=== PATIENT | female | born 1995 | race African-American/Black ===

== ENCOUNTER 2024-05-14 21:46 | Inpatient (IN) | payer SELFPAY ==
[~2024-05-14] VITALS: Ht 165.1 cm; Wt 68.9 kg
[2024-05-14] MEDS: ALBUTEROL (0.083%) 2.5MG/3ML NEB HHN STA (21:48)
[2024-05-14] MEDS: IPRATROPIUM BROMIDE (0.02%) 0.5MG/2.5ML NEB HHN STA (21:48)
[2024-05-14] MEDS: PROPOFOL 10MG/ML 100ML 100 ML IV ONE (22:00)
[2024-05-14] MEDS: METHYLPREDNISOLONE SOD SUCC 125MG/2ML (ACT-O-VIAL) IV STA (22:10)
[2024-05-14] MEDS: MAGNESIUM 2 G PREMIX 50 ML IV ONE (22:11)
[2024-05-14] MEDS: SODIUM CHLORIDE 0.9% 1,000 ML IV ONE (22:11)
[2024-05-14 22:16] VITALS: PULSE 86; RESP 22; O2SAT 100
[2024-05-14 22:18] LABS: CHLORIDE 107 mEq/L (98-107); POTASSIUM 4.6 mEq/L (3.5-5.1); SODIUM 137 mEq/L (136-145)
[2024-05-14 22:19] LABS: CALCIUM 8.4 mg/dL (8.7-10.4); CARBON DIOXIDE 16 mEq/L (21-32)
[2024-05-14 22:24] LABS: CREATININE 1.1 mg/dL (0.6-1.0); GLUCOSE 344 mg/dL (70-105); UREA NITROGEN BLOOD 11 mg/dL (9-23)
[2024-05-14 22:25] LABS: TROPONIN I HIGH SENSITIVITY 12 ng/L (3.0-34)
[2024-05-14 22:27] LABS: ETHANOL BLOOD < 10 mg/dL (<10)
[2024-05-14] MEDS ORDERED: MIDAZOLAM HCL 100 MG in DEXT 5% WATER 80 ML IV ONE (22:30)
[2024-05-14] MEDS: MIDAZOLAM 100MG/100ML PREMIX IV PRN (22:31)
[2024-05-14 22:35] LABS: LACTIC ACID 8.1 mmol/L (0.4-2.0)
[2024-05-14] MEDS: LORAZEPAM 2MG/ML INJ IV ONE (22:40)
[2024-05-14 22:45] LABS: HCG SCREEN NEGATIVE
[2024-05-14 22:55] LABS: BASOPHILS % 0.3 % (0.0-2.0); EOSINOPHILS % 1.1 % (0.0-5.0); HEMATOCRIT. 34.7 % (36.0-48.0); HEMOGLOBIN. 11.1 g/dL (12.0-16.0); LYMPHOCYTES % 14.1 % (20.0-50.0); MEAN CORPUSCULAR HEMOGLOBIN 29.7 pg (28.0-32.0); MEAN CORPUSCULAR HGB CONC 32.1 g/dL (31.0-37.0); MEAN CORPUSCULAR VOLUME 92.5 fL (81.0-99.0); MONOCYTES % 5.9 % (2.0-8.0); NEUTROPHILS % 78.6 % (40.0-76.0); PLATELET 403 x1000/uL (130-400); RED BLOOD CELL COUNT 3.75 mill/uL (4.2-5.4); RED CELL DISTRIBUTION WIDTH 14.8 % (11.6-14.6); WHITE BLOOD COUNT 18.6 x1000/uL (4.5-11.0)
[2024-05-15 00:13] LABS: D-DIMER 16.02 mg/L FEU (<0.50); PARTIAL THROMBOPLASTIN TIME 24.4 sec (23.4-31.0); PROTHROMBIN TIME 10.9 sec (9.6-11.0)
[2024-05-15 00:16] LABS: BG HCO3 ACT 17.7 mmol/L (21.0-28.0); BG PCO2 44.6 mmHg (32.0-45.0); BG PO2 384.5 mmHg (83.0-108.0)
[2024-05-15 00:17] LABS: BG BASE EXCESS -9.7 mmol/L (-2.0-3.0); BG FRACTION INSPIRED OXYGEN 100; BG PEEP (cmH2O) 5 cmH2O; BG SAMPLE SITE RIGHT RADIAL; BG TIDAL VOLUME(mL) 450 mL; BG VENT MODE AC; BG VENT RATE 18 set
[2024-05-15 00:19] LABS: BG CARBOXYHEMOGLOBIN 0.1 % (0.5-1.5); BG DEOXYHEMOGLOBIN 0.1 % (0.0-5.0); BG METHEMOGLOBIN 0.3 % (0.5-1.5); BG OXYGEN SATURATION 99.9 % (94.0-98.0); BG OXYHEMOGLOBIN 99.5 % (94.0-98.0); BG TOTAL HEMOGLOBIN 12.6 g/dL (12.0-16.0)
[2024-05-15] MEDS: DEXMEDETOMIDINE 400 MCG/100 ML 100 ML IV PRN (00:21)
[2024-05-15] MEDS: PIPERACILLIN/TAZO 3.375G/50ML 50 ML IV SCH (00:21)
[2024-05-15 00:23] LABS: CLARITY URINE CLOUDY (CLEAR); COLOR URINE YELLOW (YELLOW); GLUCOSE URINE 3+ (NEGATIVE); KETONES URINE NEGATIVE (NEGATIVE); LEUKOCYTE ESTERASE URINE NEGATIVE (NEGATIVE); NITRITE URINE NEGATIVE (NEGATIVE); OCCULT BLOOD URINE 3+ (NEGATIVE); PROTEIN URINE 2+ (NEGATIVE); SPECIFIC GRAVITY URINE 1.022 (1.005-1.030); UROBILINOGEN URINE 0.2 E.U./dL (0.2-1.0)
[2024-05-15 00:43] VITALS: PULSE 90; RESP 20; O2SAT 100
[2024-05-15 00:44] LABS: *AMPHETAMINES SCREEN URINE NEGATIVE (NEGATIVE); *BARBITURATES SCREEN URINE NEGATIVE (NEGATIVE); *BENZODIAZEPINES SCREEN URINE PRESUMPTIVE POSITIVE (NEGATIVE); *COCAINE SCREEN URINE NEGATIVE (NEGATIVE); METHADONE URINE SCREEN NEGATIVE (NEGATIVE)
[2024-05-15 00:45] LABS: CANNABINOID URINE SCREEN NEGATIVE (NEGATIVE); ECSTASY MDMA SCREEN URINE NEGATIVE (NEGATIVE); OPIATES URINE SCREEN NEGATIVE (NEGATIVE); PHENCYCLIDINE URINE SCREEN NEGATIVE (NEGATIVE)
[2024-05-15] MEDS ORDERED: IPRATROPIUM/ALBUTEROL 0.5-3(2.5)MG/3ML NEB HHN PRN (01:15)
[2024-05-15] MEDS ORDERED: FENTANYL 2500MCG/250ML PMX 250 ML IV PRN (01:15)
[2024-05-15] MEDS ORDERED: PIPERACILLIN/TAZO 3.375G/50ML 50 ML IV NR (01:15)
[2024-05-15] MEDS ORDERED: SODIUM CHLORIDE 0.9% 1,000 ML IV NR (01:15)
[2024-05-15] MEDS ORDERED: ACETAMINOPHEN 650MG SUPP PR PRN ×2 (01:15)
[2024-05-15] MEDS ORDERED: ONDANSETRON HCL 4MG/2ML INJ IV PRN (01:15)
[2024-05-15] MEDS ORDERED: IPRATROPIUM/ALBUTEROL 0.5-3(2.5)MG/3ML NEB HHN SCH ×2 (01:15→06:00)
[2024-05-15 02:14] LABS: SQUAMOUS EPITHELIAL CELL URINE FEW /lpf (RARE/1+)
[2024-05-15] MEDS ORDERED: DEXTROSE 50% WATER 50ML SYRINGE IV PRN ×2 (02:15→13:45)
[2024-05-15] MEDS ORDERED: BUDESONIDE 0.5MG/2ML NEB HHN SCH ×2 (02:15→09:00)
[2024-05-15 02:18] LABS: WBC URINE 0-2 /hpf (0-2)
[2024-05-15 02:19] LABS: BACTERIA URINE NONE SEEN
[2024-05-15] MEDS: METHYLPREDNISOLONE SOD SUCC 125MG/2ML (ACT-O-VIAL) IV SCH (02:19)
[2024-05-15] MEDS: FENTANYL CITRATE 1,000 MCG in SODIUM CHLORIDE 0.9% 80 ML IV PRN (02:31)
[2024-05-15] MEDS: NOREPINEPHRINE 8MG/250ML PMX 250 ML IV PRN (02:37)
[2024-05-15] MEDS: MIDAZOLAM HCL 2 MG/2 ML VIAL IV NR (02:38)
[2024-05-15] MEDS: LEVETIRACETAM 1000MG PREMIX 100 ML IV NR (02:54)
[2024-05-15] MEDS: VANCOMYCIN 1.25GM/250ML 250 ML IV NR (03:28)
[2024-05-15] MEDS: BLOOD SUGAR DIAGNOSTIC STRIP TEST SCH (03:36)
[2024-05-15] MEDS: SODIUM CHLORIDE 0.9% 1,000 ML IV SCH (03:38)
[2024-05-15] MEDS: INSULIN LISPRO 100 UNITS/ML SUBCUT SCH (03:57)
[2024-05-15] MEDS: PROPOFOL 10MG/ML 100ML 100 ML IV PRN (04:27)
[2024-05-15 04:55] LABS: BG BASE EXCESS -9.1 mmol/L (-2.0-3.0); BG CARBOXYHEMOGLOBIN 0.1 % (0.5-1.5); BG DEOXYHEMOGLOBIN 1.3 % (0.0-5.0); BG FRACTION INSPIRED OXYGEN 40; BG HCO3 ACT 15.9 mmol/L (21.0-28.0); BG METHEMOGLOBIN 0.2 % (0.5-1.5); BG OXYGEN SATURATION 98.7 % (94.0-98.0); BG OXYHEMOGLOBIN 98.4 % (94.0-98.0); BG PCO2 31.4 mmHg (32.0-45.0); BG PH 7.321 (7.350-7.450); BG PO2 123.4 mmHg (83.0-108.0); BG SAMPLE SITE LEFT RADIAL; BG TOTAL HEMOGLOBIN 12.1 g/dL (12.0-16.0); BG VENT MODE VENT - AC
[2024-05-15] MEDS: IPRATROPIUM/ALBUTEROL 0.5-3(2.5)MG/3ML NEB HHN SCH (08:22)
[2024-05-15 08:23] VITALS: PULSE 79; RESP 22; O2SAT 100; O2SAT 98
[2024-05-15] MEDS: BUDESONIDE 0.5MG/2ML NEB HHN SCH (08:23)
[2024-05-15] MEDS: FAMOTIDINE 20MG/2ML VIAL IV SCH (09:05)
[2024-05-15 09:06] LABS: CARBON DIOXIDE 16 mEq/L (21-32); CHLORIDE 114 mEq/L (98-107); POTASSIUM 3.9 mEq/L (3.5-5.1); SODIUM 141 mEq/L (136-145)
[2024-05-15 09:07] LABS: CALCIUM 8.1 mg/dL (8.7-10.4)
[2024-05-15 09:11] LABS: CREATININE 0.8 mg/dL (0.6-1.0)
[2024-05-15 09:12] LABS: GLUCOSE 202 mg/dL (70-105); UREA NITROGEN BLOOD 12 mg/dL (9-23)
[2024-05-15 09:13] LABS: HEMATOCRIT. 35.2 % (36.0-48.0); HEMOGLOBIN. 11.4 g/dL (12.0-16.0); MEAN CORPUSCULAR HEMOGLOBIN 29.1 pg (28.0-32.0); MEAN CORPUSCULAR HGB CONC 32.3 g/dL (31.0-37.0); MEAN CORPUSCULAR VOLUME 90.1 fL (81.0-99.0); MEAN PLATELET VOLUME 8.1 fl (7.4-10.4); PLATELET 368 x1000/uL (130-400); RED BLOOD CELL COUNT 3.91 mill/uL (4.2-5.4); RED CELL DISTRIBUTION WIDTH 14.5 % (11.6-14.6); WHITE BLOOD COUNT 22.7 x1000/uL (4.5-11.0)
[2024-05-15 09:14] LABS: PHOSPHORUS 1.7 mg/dL (2.5-4.9)
[2024-05-15 09:16] LABS: THYROID STIMULATING HORMONE 0.26 uIU/mL (0.55-4.78)
[2024-05-15 09:17] LABS: T4 FREE 1.04 ng/dL (0.89-1.76)
[2024-05-15 09:19] LABS: TROPONIN I HIGH SENSITIVITY 207 ng/L (3.0-34)
[2024-05-15 09:19] LABS: DIFFERENTIAL COMMENT 1
[2024-05-15 09:21] LABS: LACTIC ACID 2.6 mmol/L (0.4-2.0)
[2024-05-15 09:24] LABS: CREATINE KINASE 4275 IU/L (34-145)
[2024-05-15 09:41] LABS: BETA HYDROXYBUTYRATE 0.1 mMol/L (0.0-0.3)
[2024-05-15] MEDS: LACTATED RINGERS 1,000 ML IV SCH (09:45)
[2024-05-15 09:54] LABS: PLATELET ESTIMATE NORMAL
[2024-05-15] MEDS: AZITHROMYCIN 500MG/250ML 250 ML IV SCH (10:55)
[2024-05-15 10:59] LABS: BG BASE EXCESS -5.6 mmol/L (-2.0-3.0); BG CARBOXYHEMOGLOBIN 0.3 % (0.5-1.5); BG DEOXYHEMOGLOBIN 0.4 % (0.0-5.0); BG FRACTION INSPIRED OXYGEN 40; BG HCO3 ACT 17.4 mmol/L (21.0-28.0); BG METHEMOGLOBIN 0.1 % (0.5-1.5); BG OXYGEN SATURATION 99.6 % (94.0-98.0); BG OXYHEMOGLOBIN 99.2 % (94.0-98.0); BG PCO2 27.3 mmHg (32.0-45.0); BG PH 7.422 (7.350-7.450); BG PO2 173.3 mmHg (83.0-108.0); BG SAMPLE SITE LEFT RADIAL; BG TOTAL HEMOGLOBIN 12.5 g/dL (12.0-16.0); BG VENT MODE VENT - AC
[2024-05-15 12:05] VITALS: PULSE 81; RESP 22; O2SAT 10; O2SAT 100
[2024-05-15 12:46] LABS: CREATINE KINASE 863 IU/L (34-145)
[2024-05-15] MEDS: SODIUM PHOSPHATE 15 MMOL in SODIUM CHLORIDE 0.9% 245 ML IV NR (12:54)
[2024-05-15] MEDS: LORAZEPAM 2MG/ML INJ IV NR (13:00)
[2024-05-15] MEDS ORDERED: LEVETIRACETAM 500MG PREMIX 100 ML IV SCH (14:00)
[2024-05-15 14:01] LABS: TROPONIN I HIGH SENSITIVITY 38 ng/L (3.0-34)
[2024-05-15] MEDS ORDERED: LEVETIRACETAM 1,000MG in NACL 100ML PREMIX IV SCH (14:15)
[2024-05-15] MEDS: LEVETIRACETAM 1000MG PREMIX 100 ML IV SCH (14:58)
[2024-05-15] MEDS: IOHEXOL-350 100 ML BOTTLE ONE (14:59)
[2024-05-15 15:12] LABS: IRON 11 ug/dL (50-170)
[2024-05-15 15:14] LABS: TOTAL IRON BINDING CAPACITY 347 ug/dl (250-425)
[2024-05-15 15:28] LABS: HEMATOCRIT. 39.1 % (36.0-48.0); MEAN CORPUSCULAR HEMOGLOBIN 28.7 pg (28.0-32.0); MEAN CORPUSCULAR HGB CONC 30.7 g/dL (31.0-37.0); MEAN CORPUSCULAR VOLUME 93.4 fL (81.0-99.0); MEAN PLATELET VOLUME 7.7 fl (7.4-10.4); PLATELET 324 x1000/uL (130-400); RED BLOOD CELL COUNT 4.19 mill/uL (4.2-5.4); RED CELL DISTRIBUTION WIDTH 15.2 % (11.6-14.6); WHITE BLOOD COUNT 26.9 x1000/uL (4.5-11.0)
[2024-05-15 15:29] LABS: DIFFERENTIAL COMMENT 1
[2024-05-15 15:38] LABS: CHLORIDE 114 mEq/L (98-107)
[2024-05-15 15:39] LABS: POTASSIUM 4.2 mEq/L (3.5-5.1); SODIUM 142 mEq/L (136-145)
[2024-05-15 15:40] LABS: CALCIUM 6.6 mg/dL (8.7-10.4)
[2024-05-15 15:45] LABS: GLUCOSE 78 mg/dL (70-105)
[2024-05-15 15:46] LABS: ALANINE AMINOTRANSFERASE 95 IU/L (10-49); ALBUMIN 1.8 g/dL (3.2-4.8); ASPARTATE AMINOTRANSFERASE 111 IU/L (<34)
[2024-05-15 15:47] LABS: BILIRUBIN TOTAL < 0.2 mg/dL (0.1-1.0); PROTEIN TOTAL 3.1 g/dL (6.0-8.3)
[2024-05-15 15:56] LABS: PLATELET ESTIMATE NORMAL
[2024-05-15 15:57] LABS: CREATINE KINASE 2111 IU/L (34-145)
[2024-05-15 16:06] VITALS: PULSE 88; RESP 22; O2SAT 100
[2024-05-15 16:27] LABS: LACTIC ACID 3.5 mmol/L (0.4-2.0); UREA NITROGEN BLOOD < 5 mg/dL (9-23)
[2024-05-15 16:28] LABS: BILIRUBIN DIRECT < 0.1 mg/dL (<=3.0); CREATININE 0.3 mg/dL (0.6-1.0)
[2024-05-15 16:29] LABS: CARBON DIOXIDE < 10 mEq/L (21-32)
[2024-05-15] MEDS: DEXT 5%/0.9% NACL 1,000 ML IV SCH (16:43)
[2024-05-15 17:32] LABS: BG BASE EXCESS -7.4 mmol/L (-2.0-3.0); BG CARBOXYHEMOGLOBIN 0.3 % (0.5-1.5); BG DEOXYHEMOGLOBIN 1.3 % (0.0-5.0); BG FRACTION INSPIRED OXYGEN 40; BG HCO3 ACT 16.3 mmol/L (21.0-28.0); BG METHEMOGLOBIN 0.5 % (0.5-1.5); BG OXYGEN SATURATION 98.7 % (94.0-98.0); BG OXYHEMOGLOBIN 97.9 % (94.0-98.0); BG PCO2 28.1 mmHg (32.0-45.0); BG PH 7.382 (7.350-7.450); BG PO2 138.5 mmHg (83.0-108.0); BG SAMPLE SITE LEFT RADIAL; BG TOTAL HEMOGLOBIN 11.9 g/dL (12.0-16.0); BG VENT MODE VENT - AC
[2024-05-15] MEDS: SODIUM BICARBONATE 8.4% 50MEQ/50ML SYR IV NR (17:40)
[2024-05-15] MEDS: CALCIUM GLUCONATE 100MG/ML 10ML VIAL IV NR (17:54)
[2024-05-15 20:07] LABS: CREATINE KINASE 3498 IU/L (34-145)
[2024-05-15 20:34] LABS: TROPONIN I HIGH SENSITIVITY 98 ng/L (3.0-34)
[2024-05-15 21:08] VITALS: PULSE 86; RESP 22; O2SAT 100
[2024-05-16] VITALS (47 sets, daily range): BP systolic 137–187; BP diastolic 66–102; PULSE 73–126; RESP 13–28; TEMP 36.8; O2SAT 95–100
[2024-05-16 06:18] LABS: HEMATOCRIT. 33.8 % (36.0-48.0); HEMOGLOBIN. 11.1 g/dL (12.0-16.0); MEAN CORPUSCULAR HEMOGLOBIN 29.5 pg (28.0-32.0); MEAN CORPUSCULAR VOLUME 89.4 fL (81.0-99.0); MEAN PLATELET VOLUME 8.6 fl (7.4-10.4); PLATELET 308 x1000/uL (130-400); RED BLOOD CELL COUNT 3.78 mill/uL (4.2-5.4); RED CELL DISTRIBUTION WIDTH 15.2 % (11.6-14.6); WHITE BLOOD COUNT 26.6 x1000/uL (4.5-11.0)
[2024-05-16 06:28] LABS: DIFFERENTIAL COMMENT 1
[2024-05-16 06:32] LABS: CARBON DIOXIDE 18 mEq/L (21-32); CHLORIDE 117 mEq/L (98-107); POTASSIUM 3.2 mEq/L (3.5-5.1); SODIUM 146 mEq/L (136-145)
[2024-05-16 06:33] LABS: CALCIUM 8.2 mg/dL (8.7-10.4)
[2024-05-16 06:37] LABS: CREATININE 0.7 mg/dL (0.6-1.0); GLUCOSE 218 mg/dL (70-105)
[2024-05-16 06:38] LABS: TRIGLYCERIDE 70 mg/dL (0-150); UREA NITROGEN BLOOD 6 mg/dL (9-23)
[2024-05-16 06:39] LABS: LDL CHOLESTEROL 68 mg/dL (5-100)
[2024-05-16 06:40] LABS: CHOLESTEROL 148 mg/dL (<200); HDL CHOLESTEROL 64 mg/dL (>65); PHOSPHORUS 1.4 mg/dL (2.5-4.9); THYROID STIMULATING HORMONE 0.24 uIU/mL (0.55-4.78)
[2024-05-16 06:41] LABS: T4 FREE 1.09 ng/dL (0.89-1.76)
[2024-05-16] MEDS ORDERED: DEXTROSE 50% WATER 50ML SYRINGE IV PRN (07:15)
[2024-05-16] MEDS: DEXT 5%/0.45% NACL 1000ML 1,000 ML IV SCH (07:15)
[2024-05-16] MEDS: POTASSIUM CHLORIDE 20MEQ/PACKET GT NR (07:55)
[2024-05-16] MEDS: BLOOD SUGAR DIAGNOSTIC STRIP TEST SCH (08:50)
[2024-05-16] MEDS: INSULIN LISPRO 100 UNITS/ML SUBCUT SCH (08:51)
[2024-05-16] MEDS: POTASSIUM PHOSPHATE 15 MMOL in DEXT 5% WATER 245 ML IV NR (09:15)
[2024-05-16 10:34] LABS: BG BASE EXCESS -3.7 mmol/L (-2.0-3.0); BG CARBOXYHEMOGLOBIN 0.3 % (0.5-1.5); BG DEOXYHEMOGLOBIN 2.4 % (0.0-5.0); BG FRACTION INSPIRED OXYGEN 40; BG HCO3 ACT 19.6 mmol/L (21.0-28.0); BG METHEMOGLOBIN 0.3 % (0.5-1.5); BG OXYGEN SATURATION 97.6 % (94.0-98.0); BG PCO2 29.9 mmHg (32.0-45.0); BG PH 7.435 (7.350-7.450); BG SAMPLE SITE RIGHT BRACHIAL; BG TOTAL HEMOGLOBIN 10.6 g/dL (12.0-16.0); BG VENT MODE VENT - AC
[2024-05-16] MEDS: PROPOFOL 10MG/ML 100ML 100 ML IV PRN (11:00)
[2024-05-16 16:46] LABS: PLATELET ESTIMATE NORMAL
[2024-05-16] MEDS: KCL 20MEQ/100ML PREMIX 100 ML IV NR (17:00)
[2024-05-16 20:06] LABS: BG BASE EXCESS -2.7 mmol/L (-2.0-3.0); BG CARBOXYHEMOGLOBIN 0.1 % (0.5-1.5); BG DEOXYHEMOGLOBIN 2.1 % (0.0-5.0); BG FRACTION INSPIRED OXYGEN 40; BG HCO3 ACT 20.7 mmol/L (21.0-28.0); BG METHEMOGLOBIN 0.2 % (0.5-1.5); BG OXYGEN SATURATION 97.9 % (94.0-98.0); BG OXYHEMOGLOBIN 97.6 % (94.0-98.0); BG PCO2 31.4 mmHg (32.0-45.0); BG PH 7.437 (7.350-7.450); BG PO2 100.9 mmHg (83.0-108.0); BG SAMPLE SITE LEFT RADIAL; BG TOTAL HEMOGLOBIN 11.1 g/dL (12.0-16.0); BG VENT MODE VENT - AC
[2024-05-16 21:53] LABS: CHLORIDE 114 mEq/L (98-107); POTASSIUM 4.1 mEq/L (3.5-5.1); SODIUM 145 mEq/L (136-145)
[2024-05-16 21:54] LABS: CALCIUM 8.5 mg/dL (8.7-10.4); CARBON DIOXIDE 24 mEq/L (21-32)
[2024-05-16 21:59] LABS: CREATININE 0.6 mg/dL (0.6-1.0); GLUCOSE 134 mg/dL (70-105); UREA NITROGEN BLOOD 8 mg/dL (9-23)
[2024-05-16 22:01] LABS: PHOSPHORUS 1.6 mg/dL (2.5-4.9)
[2024-05-16 22:12] LABS: CREATINE KINASE 3263 IU/L (34-145)
[2024-05-17] VITALS (106 sets, daily range): BP systolic 78–198; BP diastolic 52–127; PULSE 72–163; RESP 13–26; TEMP 96.5–101.1; O2SAT 98–100
[2024-05-17 06:49] LABS: LACTIC ACID 3.3 mmol/L (0.4-2.0)
[2024-05-17 07:01] LABS: CHLORIDE 115 mEq/L (98-107); POTASSIUM 3.8 mEq/L (3.5-5.1); SODIUM 148 mEq/L (136-145)
[2024-05-17 07:02] LABS: CALCIUM 8.7 mg/dL (8.7-10.4); CARBON DIOXIDE 23 mEq/L (21-32)
[2024-05-17 07:07] LABS: CREATININE 0.7 mg/dL (0.6-1.0); GLUCOSE 170 mg/dL (70-105); TRIGLYCERIDE 43 mg/dL (0-150); UREA NITROGEN BLOOD 9 mg/dL (9-23)
[2024-05-17 07:09] LABS: PHOSPHORUS 2.8 mg/dL (2.5-4.9)
[2024-05-17 07:20] LABS: CREATINE KINASE 2608 IU/L (34-145)
[2024-05-17 07:24] LABS: HEMATOCRIT. 34.1 % (36.0-48.0); HEMOGLOBIN. 11.2 g/dL (12.0-16.0); MEAN CORPUSCULAR HEMOGLOBIN 29.5 pg (28.0-32.0); MEAN CORPUSCULAR HGB CONC 32.9 g/dL (31.0-37.0); MEAN CORPUSCULAR VOLUME 89.8 fL (81.0-99.0); MEAN PLATELET VOLUME 8.2 fl (7.4-10.4); PLATELET 323 x1000/uL (130-400); RED CELL DISTRIBUTION WIDTH 15.1 % (11.6-14.6); WHITE BLOOD COUNT 23.2 x1000/uL (4.5-11.0)
[2024-05-17 07:42] LABS: DIFFERENTIAL COMMENT 1
[2024-05-17] MEDS: SODIUM CHLORIDE 0.45% 1,000 ML IV SCH (08:56)
[2024-05-17] MEDS: AZITHROMYCIN 500MG/250ML 250 ML IV SCH (09:05)
[2024-05-17 12:19] LABS: BG BASE EXCESS -0.8 mmol/L (-2.0-3.0); BG CARBOXYHEMOGLOBIN 0.4 % (0.5-1.5); BG DEOXYHEMOGLOBIN 1.1 % (0.0-5.0); BG FRACTION INSPIRED OXYGEN 40; BG HCO3 ACT 22.8 mmol/L (21.0-28.0); BG METHEMOGLOBIN 0.1 % (0.5-1.5); BG OXYGEN SATURATION 98.9 % (94.0-98.0); BG OXYHEMOGLOBIN 98.4 % (94.0-98.0); BG PCO2 34.3 mmHg (32.0-45.0); BG PH 7.441 (7.350-7.450); BG PO2 131.2 mmHg (83.0-108.0); BG SAMPLE SITE RIGHT BRACHIAL; BG TOTAL HEMOGLOBIN 11.8 g/dL (12.0-16.0); BG VENT MODE VENT - AC
[2024-05-17] MEDS: KCL 20MEQ/100ML PREMIX 100 ML IV NR (13:23)
[2024-05-17] MEDS: ACETAMINOPHEN 650MG/20.3ML UDC NG PRN (15:03)
[2024-05-17 15:07] LABS: ANISOCYTOSIS 1+; PLATELET ESTIMATE NORMAL
[2024-05-17 16:55] LABS: CARBON DIOXIDE 21 mEq/L (21-32); CHLORIDE 116 mEq/L (98-107); POTASSIUM 4.7 mEq/L (3.5-5.1); SODIUM 146 mEq/L (136-145)
[2024-05-17 16:56] LABS: CALCIUM 8.8 mg/dL (8.7-10.4)
[2024-05-17 17:01] LABS: CREATININE 0.7 mg/dL (0.6-1.0); GLUCOSE 157 mg/dL (70-105); UREA NITROGEN BLOOD 8 mg/dL (9-23)
[2024-05-17] MEDS: METHYLPREDNISOLONE SOD SUCC 40MG/ML (ACT-O-VIAL) IV SCH (17:28)
[2024-05-17] MEDS: SODIUM PHOSPHATE 10 MMOL in DEXT 5% WATER 246.6667 ML IV NR (19:23)
[2024-05-17] MEDS: LABETALOL 5MG/ML 4ML INJ IV NR (21:49)
[2024-05-18] VITALS (105 sets, daily range): BP systolic 65–173; BP diastolic 45–139; PULSE 82–144; RESP 14–19; TEMP 36.1–37.2; O2SAT 93–100
[2024-05-18 05:50] LABS: CHLORIDE 119 mEq/L (98-107); POTASSIUM 3.7 mEq/L (3.5-5.1); SODIUM 151 mEq/L (136-145)
[2024-05-18 05:51] LABS: CALCIUM 8.8 mg/dL (8.7-10.4); CARBON DIOXIDE 21 mEq/L (21-32)
[2024-05-18 05:56] LABS: CREATININE 0.5 mg/dL (0.6-1.0); GLUCOSE 144 mg/dL (70-105); UREA NITROGEN BLOOD 12 mg/dL (9-23)
[2024-05-18 05:58] LABS: CREATINE KINASE 1297 IU/L (34-145)
[2024-05-18 05:59] LABS: PHOSPHORUS 2.7 mg/dL (2.5-4.9)
[2024-05-18 06:23] LABS: HEMATOCRIT. 34.1 % (36.0-48.0); HEMOGLOBIN. 10.9 g/dL (12.0-16.0); MEAN CORPUSCULAR HEMOGLOBIN 28.7 pg (28.0-32.0); MEAN CORPUSCULAR VOLUME 89.7 fL (81.0-99.0); MEAN PLATELET VOLUME 8.1 fl (7.4-10.4); PLATELET 320 x1000/uL (130-400); RED CELL DISTRIBUTION WIDTH 15.6 % (11.6-14.6); WHITE BLOOD COUNT 21.7 x1000/uL (4.5-11.0)
[2024-05-18 06:42] LABS: DIFFERENTIAL COMMENT 1
[2024-05-18] MEDS ORDERED: IPRATROPIUM/ALBUTEROL 0.5-3(2.5)MG/3ML NEB HHN PRN (07:45)
[2024-05-18] MEDS: DEXTROSE 5% WATER 1,000 ML IV SCH (07:45)
[2024-05-18 08:29] LABS: BG BASE EXCESS 0.7 mmol/L (-2.0-3.0); BG CARBOXYHEMOGLOBIN 0.7 % (0.5-1.5); BG DEOXYHEMOGLOBIN 3.5 % (0.0-5.0); BG FRACTION INSPIRED OXYGEN 40; BG HCO3 ACT 22.5 mmol/L (21.0-28.0); BG METHEMOGLOBIN 0.3 % (0.5-1.5); BG OXYGEN SATURATION 96.5 % (94.0-98.0); BG OXYHEMOGLOBIN 95.5 % (94.0-98.0); BG PCO2 28.7 mmHg (32.0-45.0); BG PH 7.513 (7.350-7.450); BG SAMPLE SITE RIGHT RADIAL; BG TOTAL HEMOGLOBIN 13.7 g/dL (12.0-16.0); BG VENT MODE VENT - AC
[2024-05-18] MEDS: AZITHROMYCIN 500 MG TABLET GT SCH (08:40)
[2024-05-18] MEDS: SODIUM CHLORIDE 0.45% 1,000 ML IV ONE (09:41)
[2024-05-18 11:47] LABS: BG BASE EXCESS 0.9 mmol/L (-2.0-3.0); BG CARBOXYHEMOGLOBIN 0.3 % (0.5-1.5); BG DEOXYHEMOGLOBIN 4.8 % (0.0-5.0); BG FRACTION INSPIRED OXYGEN 40; BG HCO3 ACT 25.4 mmol/L (21.0-28.0); BG METHEMOGLOBIN 0.3 % (0.5-1.5); BG OXYGEN SATURATION 95.2 % (94.0-98.0); BG OXYHEMOGLOBIN 94.6 % (94.0-98.0); BG PCO2 40.3 mmHg (32.0-45.0); BG PH 7.418 (7.350-7.450); BG PO2 76.9 mmHg (83.0-108.0); BG SAMPLE SITE RIGHT RADIAL; BG TOTAL HEMOGLOBIN 11.9 g/dL (12.0-16.0); BG VENT MODE VENT - AC
[2024-05-18] MEDS: VANCOMYCIN 1GM/200ML PMX (BAXTER) IV NR (11:56)
[2024-05-18 13:28] LABS: TROPONIN I HIGH SENSITIVITY 1757 ng/L (3.0-34)
[2024-05-18 14:22] LABS: PLATELET ESTIMATE NORMAL
[2024-05-18 17:56] LABS: CARBON DIOXIDE 24 mEq/L (21-32); CHLORIDE 118 mEq/L (98-107); POTASSIUM 4.5 mEq/L (3.5-5.1); SODIUM 150 mEq/L (136-145)
[2024-05-18 18:02] LABS: CREATININE 0.8 mg/dL (0.6-1.0); GLUCOSE 275 mg/dL (70-105); UREA NITROGEN BLOOD 15 mg/dL (9-23)
[2024-05-18 18:04] LABS: CREATINE KINASE 881 IU/L (34-145); PHOSPHORUS 2.9 mg/dL (2.5-4.9)
[2024-05-18] MEDS ORDERED: PHENYLEPHRINE 100 MG in DEXT 5% WATER 240 ML IV PRN (20:00)
[2024-05-18] MEDS: VANCOMYCIN 750MG PREMIX 150 ML IV SCH (20:05)
[2024-05-18] MEDS: SODIUM CHLORIDE 0.45% 500 ML IV NR (20:06)
[2024-05-18] MEDS ORDERED: VANCOMYCIN 1GM/200ML PMX (BAXTER) IV SCH (21:00)
[2024-05-18] MEDS: METHYLPREDNISOLONE SOD SUCC 40MG/ML (ACT-O-VIAL) IV SCH (21:31)
[2024-05-19] VITALS (101 sets, daily range): BP systolic 76–141; BP diastolic 52–110; PULSE 68–100; RESP 11–32; TEMP 34.4–36.6; O2SAT 87–100
[2024-05-19] MEDS: DESMOPRESSIN ACETATE 4MCG/ML AMP IV NR (01:12)
[2024-05-19 02:08] LABS: CHLORIDE 131 mEq/L (98-107); POTASSIUM 3.9 mEq/L (3.5-5.1)
[2024-05-19 02:09] LABS: CALCIUM 9.5 mg/dL (8.7-10.4); CARBON DIOXIDE 27 mEq/L (21-32)
[2024-05-19 02:14] LABS: CREATININE 0.8 mg/dL (0.6-1.0); GLUCOSE 165 mg/dL (70-105)
[2024-05-19 02:15] LABS: UREA NITROGEN BLOOD 15 mg/dL (9-23)
[2024-05-19 02:16] LABS: ALANINE AMINOTRANSFERASE 105 IU/L (10-49); ALBUMIN 3.5 g/dL (3.2-4.8); ASPARTATE AMINOTRANSFERASE 75 IU/L (<34); PHOSPHORUS 2.4 mg/dL (2.5-4.9)
[2024-05-19 02:17] LABS: BILIRUBIN TOTAL 0.3 mg/dL (0.1-1.0)
[2024-05-19 02:57] LABS: SODIUM 167 mEq/L (136-145)
[2024-05-19] MEDS: DEXTROSE 5% WATER 1,000 ML IV SCH (04:57)
[2024-05-19 08:01] LABS: CHLORIDE 124 mEq/L (98-107); POTASSIUM 3.2 mEq/L (3.5-5.1)
[2024-05-19 08:02] LABS: CALCIUM 9.1 mg/dL (8.7-10.4); CARBON DIOXIDE 27 mEq/L (21-32)
[2024-05-19 08:07] LABS: CREATININE 0.8 mg/dL (0.6-1.0); GLUCOSE 314 mg/dL (70-105); UREA NITROGEN BLOOD 17 mg/dL (9-23)
[2024-05-19 08:08] LABS: BASOPHILS % 0.1 % (0.0-2.0); LYMPHOCYTES % 7.7 % (20.0-50.0); MEAN CORPUSCULAR HGB CONC 32.3 g/dL (31.0-37.0); MEAN CORPUSCULAR VOLUME 89.8 fL (81.0-99.0); MONOCYTES % 8.4 % (2.0-8.0); NEUTROPHILS % 83.8 % (40.0-76.0); PLATELET 305 x1000/uL (130-400); RED BLOOD CELL COUNT 3.79 mill/uL (4.2-5.4); RED CELL DISTRIBUTION WIDTH 15.5 % (11.6-14.6); WHITE BLOOD COUNT 16.7 x1000/uL (4.5-11.0)
[2024-05-19 08:09] LABS: PHOSPHORUS 1.7 mg/dL (2.5-4.9)
[2024-05-19 08:54] LABS: SODIUM 159 mEq/L (136-145)
[2024-05-19] MEDS: POTASSIUM CHLORIDE 20MEQ TABLET SR PO SCH (09:28)
[2024-05-19] MEDS ORDERED: DEXTROSE 50% WATER 50ML SYRINGE IV PRN (09:30)
[2024-05-19] MEDS: POTASSIUM PHOSPHATE 20 MMOL in DEXT 5% WATER 243.3333 ML IV SCH (12:19)
[2024-05-19] MEDS: BLOOD SUGAR DIAGNOSTIC STRIP TEST SCH (12:45)
[2024-05-19] MEDS: INSULIN LISPRO 100 UNITS/ML SUBCUT SCH (12:46)
[2024-05-19 13:13] LABS: TROPONIN I HIGH SENSITIVITY 623 ng/L (3.0-34)
[2024-05-19] MEDS ORDERED: METHYLPREDNISOLONE SOD SUCC 40MG/ML (ACT-O-VIAL) IV SCH (14:00)
[2024-05-19] MEDS: DEXAMETHASONE 10 MG/ML VIAL IV NR (15:15)
[2024-05-19 17:07] LABS: CHLORIDE 119 mEq/L (98-107); SODIUM 155 mEq/L (136-145)
[2024-05-19 17:08] LABS: CALCIUM 8.5 mg/dL (8.7-10.4); CARBON DIOXIDE 27 mEq/L (21-32)
[2024-05-19 17:13] LABS: CREATININE 0.7 mg/dL (0.6-1.0); GLUCOSE 109 mg/dL (70-105); UREA NITROGEN BLOOD 14 mg/dL (9-23)
[2024-05-19 17:15] LABS: PHOSPHORUS 5.5 mg/dL (2.5-4.9)
[2024-05-19] MEDS: DESMOPRESSIN ACETATE 0.1MG TABLET PO SCH (20:48)
[2024-05-19] MEDS: LORAZEPAM 2MG/ML INJ IV PRN (20:50)
[2024-05-19 22:08] LABS: CHLORIDE 118 mEq/L (98-107); POTASSIUM 4.4 mEq/L (3.5-5.1); SODIUM 154 mEq/L (136-145)
[2024-05-19 22:09] LABS: CALCIUM 8.8 mg/dL (8.7-10.4); CARBON DIOXIDE 28 mEq/L (21-32)
[2024-05-19 22:14] LABS: CREATININE 0.7 mg/dL (0.6-1.0); GLUCOSE 168 mg/dL (70-105); UREA NITROGEN BLOOD 13 mg/dL (9-23)
[2024-05-19 22:16] LABS: PHOSPHORUS 4.9 mg/dL (2.5-4.9)
[2024-05-19 22:29] LABS: TROPONIN I HIGH SENSITIVITY 601 ng/L (3.0-34)
[2024-05-20] VITALS (100 sets, daily range): BP systolic 74–161; BP diastolic 45–116; PULSE 85–121; RESP 14; TEMP 95.2–100.8; O2SAT 100
[2024-05-20 02:01] LABS: TROPONIN I HIGH SENSITIVITY 531 ng/L (3.0-34)
[2024-05-20 06:52] LABS: BASOPHILS % 0.2 % (0.0-2.0); EOSINOPHILS % 0.1 % (0.0-5.0); HEMATOCRIT. 35.3 % (36.0-48.0); HEMOGLOBIN. 11.3 g/dL (12.0-16.0); MEAN CORPUSCULAR HEMOGLOBIN 28.5 pg (28.0-32.0); MEAN CORPUSCULAR HGB CONC 32.1 g/dL (31.0-37.0); MEAN CORPUSCULAR VOLUME 88.9 fL (81.0-99.0); MEAN PLATELET VOLUME 7.9 fl (7.4-10.4); MONOCYTES % 8.4 % (2.0-8.0); NEUTROPHILS % 82.3 % (40.0-76.0); PLATELET 344 x1000/uL (130-400); RED BLOOD CELL COUNT 3.97 mill/uL (4.2-5.4); RED CELL DISTRIBUTION WIDTH 15.6 % (11.6-14.6); WHITE BLOOD COUNT 16.2 x1000/uL (4.5-11.0)
[2024-05-20 07:09] LABS: PHOSPHORUS 3.9 mg/dL (2.5-4.9)
[2024-05-20 07:14] LABS: CHLORIDE 112 mEq/L (98-107); POTASSIUM 4.4 mEq/L (3.5-5.1); SODIUM 147 mEq/L (136-145)
[2024-05-20 07:15] LABS: CALCIUM 8.3 mg/dL (8.7-10.4); CARBON DIOXIDE 29 mEq/L (21-32)
[2024-05-20 07:20] LABS: CREATININE 0.7 mg/dL (0.6-1.0); GLUCOSE 159 mg/dL (70-105); UREA NITROGEN BLOOD 13 mg/dL (9-23)
[2024-05-20 07:22] LABS: ALANINE AMINOTRANSFERASE 77 IU/L (10-49); ASPARTATE AMINOTRANSFERASE 33 IU/L (<34)
[2024-05-20 07:23] LABS: BILIRUBIN TOTAL 0.2 mg/dL (0.1-1.0); PROTEIN TOTAL 5.2 g/dL (6.0-8.3)
[2024-05-20 07:56] LABS: BILIRUBIN DIRECT < 0.1 mg/dL (<=3.0)
[2024-05-20 08:43] LABS: BG BASE EXCESS 4.6 mmol/L (-2.0-3.0); BG CARBOXYHEMOGLOBIN 0.3 % (0.5-1.5); BG DEOXYHEMOGLOBIN 0.5 % (0.0-5.0); BG FRACTION INSPIRED OXYGEN 40; BG HCO3 ACT 28.2 mmol/L (21.0-28.0); BG OXYGEN SATURATION 99.5 % (94.0-98.0); BG OXYHEMOGLOBIN 99.2 % (94.0-98.0); BG PH 7.488 (7.350-7.450); BG PO2 194.6 mmHg (83.0-108.0); BG SAMPLE SITE RIGHT RADIAL; BG TOTAL RESPIRATORY RATE 14 b/min; BG VENT MODE VENT - AC
[2024-05-20] MEDS: DEXAMETHASONE 10 MG/ML VIAL IV SCH (09:00)
[2024-05-20] MEDS: MAGNESIUM 1 G PREMIX 100 ML IV ONE (10:00)
[2024-05-20] MEDS: METOCLOPRAMIDE HCL 10MG/2ML VIAL IV SCH (12:00)
[2024-05-21] VITALS (103 sets, daily range): BP systolic 78–150; BP diastolic 48–115; PULSE 99–138; RESP 14; TEMP 97–99.3; O2SAT 100
[2024-05-21] MEDS: LORAZEPAM 2MG/ML INJ IV PRN (02:32)
[2024-05-21 08:28] LABS: BASOPHILS % 0.1 % (0.0-2.0); EOSINOPHILS % 0.4 % (0.0-5.0); HEMATOCRIT. 37.3 % (36.0-48.0); HEMOGLOBIN. 11.9 g/dL (12.0-16.0); LYMPHOCYTES % 17.8 % (20.0-50.0); MEAN CORPUSCULAR HEMOGLOBIN 28.5 pg (28.0-32.0); MEAN CORPUSCULAR VOLUME 89.1 fL (81.0-99.0); MONOCYTES % 8.1 % (2.0-8.0); NEUTROPHILS % 73.6 % (40.0-76.0); PLATELET 322 x1000/uL (130-400); RED BLOOD CELL COUNT 4.19 mill/uL (4.2-5.4); RED CELL DISTRIBUTION WIDTH 15.4 % (11.6-14.6); WHITE BLOOD COUNT 16.4 x1000/uL (4.5-11.0)
[2024-05-21 08:46] LABS: CARBON DIOXIDE 31 mEq/L (21-32); CHLORIDE 113 mEq/L (98-107); POTASSIUM 3.2 mEq/L (3.5-5.1); SODIUM 151 mEq/L (136-145)
[2024-05-21 08:47] LABS: CALCIUM 8.9 mg/dL (8.7-10.4)
[2024-05-21 08:52] LABS: CREATININE 0.8 mg/dL (0.6-1.0); GLUCOSE 151 mg/dL (70-105); UREA NITROGEN BLOOD 10 mg/dL (9-23)
[2024-05-21 08:54] LABS: PHOSPHORUS 3.5 mg/dL (2.5-4.9)
[2024-05-21] MEDS: POTASSIUM CHLORIDE 20MEQ TABLET SR PO SCH (10:45)
[2024-05-21] MEDS ORDERED: DEXTROSE 5% WATER 1,000 ML IV NR (11:15)
[2024-05-21] MEDS: DESMOPRESSIN ACETATE IVPB 1 MCG in SODIUM CHLORIDE 0.9% 50 ML IV NR (11:18)
[2024-05-21] MEDS: PHENYLEPHRINE 50MG/250ML PMX 250 ML IV PRN (11:19)
[2024-05-21] MEDS: DEXAMETHASONE 4MG/ML 1ML VIAL IV SCH (17:34)
[2024-05-21] MEDS ORDERED: DEXTROSE 50% WATER 50ML SYRINGE IV PRN (18:15)
[2024-05-21] MEDS: DESMOPRESSIN ACETATE 4MCG/ML AMP SUBCUT SCH (21:23)
[2024-05-21 22:09] LABS: CHLORIDE 121 mEq/L (98-107); POTASSIUM 3.8 mEq/L (3.5-5.1)
[2024-05-21 22:10] LABS: CALCIUM 9.8 mg/dL (8.7-10.4); CARBON DIOXIDE 27 mEq/L (21-32)
[2024-05-21 22:15] LABS: CREATININE 0.9 mg/dL (0.6-1.0); GLUCOSE 143 mg/dL (70-105); UREA NITROGEN BLOOD 10 mg/dL (9-23)
[2024-05-21 22:18] LABS: PHOSPHORUS 4.4 mg/dL (2.5-4.9)
[2024-05-21 22:23] LABS: SODIUM 159 mEq/L (136-145)
[2024-05-22] VITALS (110 sets, daily range): BP systolic 57–160; BP diastolic 38–122; PULSE 82–121; RESP 14–16; TEMP 35.3–37; O2SAT 99–100
[2024-05-22 06:48] LABS: CHLORIDE 111 mEq/L (98-107); SODIUM 148 mEq/L (136-145)
[2024-05-22 06:49] LABS: CALCIUM 9.7 mg/dL (8.7-10.4); CARBON DIOXIDE 29 mEq/L (21-32)
[2024-05-22 06:54] LABS: CREATININE 0.9 mg/dL (0.6-1.0); GLUCOSE 162 mg/dL (70-105); UREA NITROGEN BLOOD 10 mg/dL (9-23)
[2024-05-22 06:56] LABS: PHOSPHORUS 6.1 mg/dL (2.5-4.9)
[2024-05-22 07:30] LABS: HEMATOCRIT. 42.4 % (36.0-48.0); HEMOGLOBIN. 13.5 g/dL (12.0-16.0); MEAN CORPUSCULAR HEMOGLOBIN 28.8 pg (28.0-32.0); MEAN CORPUSCULAR HGB CONC 31.9 g/dL (31.0-37.0); MEAN CORPUSCULAR VOLUME 90.3 fL (81.0-99.0); MEAN PLATELET VOLUME 8.2 fl (7.4-10.4); PLATELET 403 x1000/uL (130-400); RED BLOOD CELL COUNT 4.69 mill/uL (4.2-5.4); WHITE BLOOD COUNT 24.8 x1000/uL (4.5-11.0)
[2024-05-22 08:15] LABS: DIFFERENTIAL COMMENT 1
[2024-05-22] MEDS ORDERED: DEXTROSE 5% WATER 1,000 ML IV NR (08:30)
[2024-05-22] MEDS ORDERED: DESMOPRESSIN ACETATE IVPB 1 MCG in SODIUM CHLORIDE 0.9% 50 ML IV SCH (09:00)
[2024-05-22] MEDS: DEXT 5%/0.45% NACL 1000ML 1,000 ML IV SCH (11:48)
[2024-05-22 13:07] LABS: CARBON DIOXIDE 28 mEq/L (21-32); CHLORIDE 107 mEq/L (98-107); POTASSIUM 3.9 mEq/L (3.5-5.1); SODIUM 143 mEq/L (136-145)
[2024-05-22 13:08] LABS: CALCIUM 8.9 mg/dL (8.7-10.4)
[2024-05-22 13:13] LABS: CREATININE 0.9 mg/dL (0.6-1.0); GLUCOSE 170 mg/dL (70-105); UREA NITROGEN BLOOD 13 mg/dL (9-23)
[2024-05-22 13:15] LABS: PHOSPHORUS 5.4 mg/dL (2.5-4.9)
[2024-05-22] MEDS: PHENYLEPHRINE 50MG/250ML PMX 250 ML IV PRN (16:07)
[2024-05-22 20:36] LABS: PLATELET ESTIMATE INCREASED
[2024-05-23] VITALS (125 sets, daily range): BP systolic 53–261; BP diastolic 31–157; PULSE 41–138; RESP 7–25; TEMP 36.3–37.9; O2SAT 95–100
[2024-05-23] MEDS: DEXT 5%/0.45% NACL 1000ML 1,000 ML IV ONE (09:05)
[2024-05-23 11:03] LABS: BG BASE EXCESS -2.3 mmol/L (-2.0-3.0); BG CARBOXYHEMOGLOBIN 0.3 % (0.5-1.5); BG DEOXYHEMOGLOBIN 0.3 % (0.0-5.0); BG FRACTION INSPIRED OXYGEN 100; BG HCO3 ACT 24.9 mmol/L (21.0-28.0); BG METHEMOGLOBIN 0.3 % (0.5-1.5); BG OXYGEN SATURATION 99.7 % (94.0-98.0); BG OXYHEMOGLOBIN 99.1 % (94.0-98.0); BG PCO2 52.5 mmHg (32.0-45.0); BG PH 7.294 (7.350-7.450); BG PO2 540.3 mmHg (83.0-108.0); BG SAMPLE SITE RIGHT RADIAL; BG TOTAL HEMOGLOBIN 14.5 g/dL (12.0-16.0); BG VENT MODE VENT - AC
[2024-05-23 11:08] LABS: CHLORIDE 96 mEq/L (98-107); POTASSIUM 3.4 mEq/L (3.5-5.1); SODIUM 126 mEq/L (136-145)
[2024-05-23 11:09] LABS: CARBON DIOXIDE 24 mEq/L (21-32)
[2024-05-23 11:10] LABS: CALCIUM 8.2 mg/dL (8.7-10.4)
[2024-05-23 11:14] LABS: CREATININE 0.6 mg/dL (0.6-1.0); GLUCOSE 222 mg/dL (70-105); UREA NITROGEN BLOOD 12 mg/dL (9-23)
[2024-05-23] MEDS ORDERED: POTASSIUM CHLORIDE 20MEQ TABLET SR PO NR (13:45)
[2024-05-23] MEDS: KCL 20MEQ/100ML PREMIX 100 ML IV NR (14:28)
[2024-05-23 15:10] LABS: BG BASE EXCESS -0.3 mmol/L (-2.0-3.0); BG CARBOXYHEMOGLOBIN 0.3 % (0.5-1.5); BG DEOXYHEMOGLOBIN 0.4 % (0.0-5.0); BG FRACTION INSPIRED OXYGEN 40; BG HCO3 ACT 20.1 mmol/L (21.0-28.0); BG METHEMOGLOBIN 0.1 % (0.5-1.5); BG OXYGEN SATURATION 99.6 % (94.0-98.0); BG OXYHEMOGLOBIN 99.2 % (94.0-98.0); BG PCO2 22.6 mmHg (32.0-45.0); BG PH 7.566 (7.350-7.450); BG SAMPLE SITE RIGHT BRACHIAL; BG TOTAL HEMOGLOBIN 13.1 g/dL (12.0-16.0); BG VENT MODE VENT - AC
[2024-05-23 16:06] LABS: CHLORIDE 96 mEq/L (98-107); POTASSIUM 4.2 mEq/L (3.5-5.1); SODIUM 124 mEq/L (136-145)
[2024-05-23 16:07] LABS: CALCIUM 8.4 mg/dL (8.7-10.4); CARBON DIOXIDE 22 mEq/L (21-32)
[2024-05-23 16:12] LABS: CREATININE 0.6 mg/dL (0.6-1.0); GLUCOSE 137 mg/dL (70-105); UREA NITROGEN BLOOD 11 mg/dL (9-23)
[2024-05-23] MEDS: MAGNESIUM 2 G PREMIX 50 ML IV NR (16:54)
[2024-05-23 17:44] LABS: BG BASE EXCESS -6.1 mmol/L (-2.0-3.0); BG CARBOXYHEMOGLOBIN 0.3 % (0.5-1.5); BG DEOXYHEMOGLOBIN 0.3 % (0.0-5.0); BG FRACTION INSPIRED OXYGEN 100; BG HCO3 ACT 19.8 mmol/L (21.0-28.0); BG METHEMOGLOBIN 0.1 % (0.5-1.5); BG OXYGEN SATURATION 99.7 % (94.0-98.0); BG OXYHEMOGLOBIN 99.3 % (94.0-98.0); BG PCO2 40.6 mmHg (32.0-45.0); BG PH 7.307 (7.350-7.450); BG PO2 469.1 mmHg (83.0-108.0); BG SAMPLE SITE RIGHT BRACHIAL; BG TOTAL HEMOGLOBIN 12.9 g/dL (12.0-16.0); BG VENT MODE VENT - AC
[2024-05-24] VITALS (73 sets, daily range): BP systolic 87–134; BP diastolic 58–103; PULSE 7–95; RESP 11–20; TEMP 36.7–37.4; O2SAT 100
[2024-05-24 06:54] LABS: HEMATOCRIT. 34.5 % (36.0-48.0); HEMOGLOBIN. 11.3 g/dL (12.0-16.0); MEAN CORPUSCULAR HEMOGLOBIN 28.7 pg (28.0-32.0); MEAN CORPUSCULAR HGB CONC 32.8 g/dL (31.0-37.0); MEAN CORPUSCULAR VOLUME 87.7 fL (81.0-99.0); MEAN PLATELET VOLUME 8.3 fl (7.4-10.4); PLATELET 432 x1000/uL (130-400); RED BLOOD CELL COUNT 3.94 mill/uL (4.2-5.4); RED CELL DISTRIBUTION WIDTH 14.2 % (11.6-14.6); WHITE BLOOD COUNT 28.9 x1000/uL (4.5-11.0)
[2024-05-24 06:55] LABS: CALCIUM 7.4 mg/dL (8.7-10.4); CARBON DIOXIDE 23 mEq/L (21-32); CHLORIDE 97 mEq/L (98-107); POTASSIUM 4.2 mEq/L (3.5-5.1); SODIUM 125 mEq/L (136-145)
[2024-05-24 07:00] LABS: CREATININE 0.7 mg/dL (0.6-1.0); GLUCOSE 172 mg/dL (70-105)
[2024-05-24 07:01] LABS: DIFFERENTIAL COMMENT 1; UREA NITROGEN BLOOD 16 mg/dL (9-23)
[2024-05-24 07:03] LABS: PHOSPHORUS 2.7 mg/dL (2.5-4.9)
[2024-05-24] MEDS: LIDOCAINE HCL 1% 10 MG/ML 10ML VIAL ONE (08:44)
[2024-05-24] MEDS: DEXT 5%/0.9% NACL 1,000 ML IV SCH (13:00)
[2024-05-24 15:53] LABS: PLATELET ESTIMATE NORMAL
== END 2024-05-24 18:49 | DRG 720 ==
LOC: ER 21:46 → MICUSO 22:19 → CVICU 05-16 14:26
PROVIDERS: ADMIT Internal Medicine; ATTEND Internal Medicine
PROC: 5A1955Z Respiratory Ventilation, Greater than 96 Consecutive Hours (ICD-10-PCS; principal; 2024-05-14)
PROC: 02HV33Z Insertion of Infusion Device into Superior Vena Cava, Percutaneous Approach (ICD-10-PCS; 2024-05-16)
PROC: B548ZZA Ultrasonography of Superior Vena Cava, Guidance (ICD-10-PCS; 2024-05-16)
PROC: 4A00X4Z Measurement of Central Nervous Electrical Activity, External Approach (ICD-10-PCS; 2024-05-17)
PROC: 4A00X4Z Measurement of Central Nervous Electrical Activity, External Approach (ICD-10-PCS; 2024-05-18)
PROC: 4A00X4Z Measurement of Central Nervous Electrical Activity, External Approach (ICD-10-PCS; 2024-05-22)
DX: A41.9 Sepsis, unspecified organism (principal); I46.9 Cardiac arrest, cause unspecified; G93.6 Cerebral edema; J69.0 Pneumonitis due to inhalation of food and vomit; J96.01 Acute respiratory failure with hypoxia; R65.21 Severe sepsis with septic shock; R57.0 Cardiogenic shock; G92.8 Other toxic encephalopathy; J45.901 Unspecified asthma with (acute) exacerbation; E83.39 Other disorders of phosphorus metabolism; Z20.822 Contact with and (suspected) exposure to COVID-19; G40.901 Epilepsy, unspecified, not intractable, with status epilepticus; N17.0 Acute kidney failure with tubular necrosis; M62.82 Rhabdomyolysis; E83.51 Hypocalcemia; D64.9 Anemia, unspecified; E16.2 Hypoglycemia, unspecified; E87.0 Hyperosmolality and hypernatremia; E87.6 Hypokalemia; E87.20 Acidosis, unspecified; E05.80 Other thyrotoxicosis without thyrotoxic crisis or storm; R73.9 Hyperglycemia, unspecified; G93.5 Compression of brain; I47.10 Supraventricular tachycardia, unspecified; D18.02 Hemangioma of intracranial structures; G93.1 Anoxic brain damage, not elsewhere classified; Z87.09 Personal history of other diseases of the respiratory system; Z79.899 Other long term (current) drug therapy; Z82.5 Family history of asthma and other chronic lower respiratory diseases
CPT/HCPCS: 36415; 36573; 36600; 70551; 71045; 71275; 78580; 78610; 80048; 80053; 80061; 80076; 80202; 80305; 80320; 81003; 82040; 82375; 82550; 82728; 82805; 82962; 83036; 83540; 83550; 83605; 83735; 83880; 83935; 84100; 84145; 84439; 84443; 84478; 84480; 84484; 84703; 85025; 85379; 87070; 87077; 87186; 87426; 87804; 93005; 93306; 93970; 94002; 94003; 94070; 94640; 94664; 95816; 99291; A4606; A9512; C1725; J0456; J0610; J1100; J1815; J1953; J2003; J2060; J2250; J2543; J2597; J2704; J2765; J2919; J2920; J3010; J3370; J3475; J3480; J3490; J7030; J7050; J7060; J7070; J7626; Q9967; G0480